=== PATIENT | male | born 1960 | race Caucasian/White ===

== ENCOUNTER 2024-06-07 09:47 | Outpatient (CLI) | payer BC | END 2024-06-07 09:48 | disposition home or self-care (01) | LOC: BICRAD 09:47 | DX: M19.041 Primary osteoarthritis, right hand (principal) ==

== ENCOUNTER 2024-08-03 11:39 | Outpatient (CLI) | payer BC | END 2024-08-03 11:40 | disposition home or self-care (01) | LOC: BICRAD 11:39 | PROVIDERS: ATTEND Internal Medicine Rheumatology | DX: M25.521 Pain in right elbow (principal); M06.321 Rheumatoid nodule, right elbow ==